=== PATIENT | male | born 1975 | race Caucasian/White ===

== ENCOUNTER 2021-09-13 17:52 | Emergency (ER) | payer OTHER, SELFPAY ==
--- NOTE | 2021-09-13 19:36 | PC.NURSE ---
1746-- pt decided at registration time to not stay due to long wait time.
== END 2021-09-13 19:36 | disposition left against medical advice (07) ==
DX: Z20.822 Contact with and (suspected) exposure to COVID-19 (principal)
CPT/HCPCS: 99199